=== PATIENT | male | born 1975 | race American Indian/Alaskan Native ===

== ENCOUNTER 2020-09-09 18:37 | Emergency (ER) | payer SELFPAY ==
[2020-09-10] MEDS ORDERED: ONDANSETRON 4 MG ODT TAB PO ONE (00:39)
--- NOTE | 2020-09-10 00:52 | Emergency Department Report ---
ED General Adult HPI - General Chief complaint: Medical Clearance Stated complaint: CANNOT EAT OR TASTE FOOD Time Seen by Provider: 09/10/20 00:38 Source: patient Mode of arrival: Ambulatory Limitations: No Limitations - History of Present Illness Initial comments: Patient is a 45-year-old -[place] male who presents for nausea vomiting with loss of taste and smell x1 week. Patient denies fevers or chills. States abdominal pain as 4/10 cramping intermittent. Symptoms are exacerbated by p.o. intake. Symptoms are relieved by nothing tried. Patient denies dizziness, lightheadedness, chest pain, shortness of breath, there is no back pain no dysuria frequency or urgency. Patient is a 20-year smoker, states occasional EtOH - Related Data Previous Rx's Medication Instructions Recorded Last Taken Type Dicyclomine [Bentyl] 10 mg PO QID #15 capsule 09/10/20 Unknown Rx Ondansetron [Zofran Odt] 4 mg PO Q8HR #12 tab.rapdis 09/10/20 Unknown Rx Allergies Allergy/AdvReac Type Severity Reaction Status Date / Time No Known Allergies Allergy Unverified 09/09/20 19:00 ED Review of Systems ROS: Stated complaint: CANNOT EAT OR TASTE FOOD Other details as noted in HPI Constitutional: malaise. denies: chills, fever Eyes: denies: eye pain, eye discharge, vision change ENT: congestion. denies: throat pain Respiratory: denies: cough, shortness of breath, wheezing Cardiovascular: denies: chest pain, palpitations Endocrine: no symptoms reported Gastrointestinal: abdominal pain, nausea, vomiting, diarrhea Genitourinary: denies: urgency, dysuria, frequency, hematuria Musculoskeletal: denies: back pain, joint swelling, arthralgia Skin: denies: rash, lesions Neurological: denies: headache, weakness, paresthesias Psychiatric: denies: anxiety, depression Hematological/Lymphatic: denies: easy bleeding, easy bruising ED Past Medical Hx - Past Medical History Previous Medical History?: No - Surgical History Past Surgical History?: Yes Additional Surgical History: Hernia repair. - Medications Home Medications: Home Medications Medication Instructions Recorded Confirmed Last Taken Type Dicyclomine [Bentyl] 10 mg PO QID #15 capsule 09/10/20 Unknown Rx Ondansetron [Zofran Odt] 4 mg PO Q8HR #12 tab.rapdis 09/10/20 Unknown Rx ED Physical Exam - General Limitations: No Limitations General appearance: alert, in no apparent distress - Head Head exam: Present: atraumatic, normocephalic - Eye Eye exam: Present: normal appearance, EOMI Pupils: Present: normal accommodation - ENT ENT exam: Present: mucous membranes moist - Neck Neck exam: Present: normal inspection, full ROM. Absent: tenderness - Respiratory Respiratory exam: Present: normal lung sounds bilaterally. Absent: respiratory distress, wheezes, stridor, chest wall tenderness - Cardiovascular Cardiovascular Exam: Present: regular rate, normal rhythm, normal heart sounds. Absent: systolic murmur, diastolic murmur, rubs, gallop - GI/Abdominal GI/Abdominal exam: Present: soft, normal bowel sounds. Absent: distended, tenderness, guarding, rebound, rigid, bruit, hernia - Rectal Rectal exam: Present: deferred - Extremities Exam Extremities exam: Present: normal inspection, full ROM, normal capillary refill. Absent: tenderness - Back Exam Back exam: Present: normal inspection, full ROM. Absent: tenderness, CVA tenderness (R), CVA tenderness (L) - Neurological Exam Neurological exam: Present: alert, oriented X3 - Psychiatric Psychiatric exam: Present: normal affect, normal mood - Skin Skin exam: Present: warm, dry, intact, normal color. Absent: rash ED Course Vital Signs 09/09/20 18:59 Temperature 100 F H Pulse Rate 53 L Respiratory 16 Rate Blood Pressure 100/60 [Right] O2 Sat by Pulse 100 Oximetry ED Medical Decision Making - Lab Data Result diagrams: 09/10/20 00:47 09/10/20 00:47 Labs 09/10/20 09/10/20 00:47 00:47 WBC 4.1 L RBC 5.56 H Hgb 18.1 H Hct 53.9 H MCV 97 H MCH 33 H MCHC 34 RDW 13.4 Plt Count 138 L [place] % (Auto) Lock Operator Sodium 136 L Potassium 4.4 Chloride 98.3 Carbon Dioxide 26 Anion Gap 16 BUN 24 H Creatinine 1.9 H Estimated GFR 47 BUN/Creatinine Ratio 13 Glucose 119 H Calcium 9.2 Total Bilirubin 0.30 AST 30 ALT 27 Alkaline Phosphatase 60 Total Protein 7.5 Albumin 4.6 Albumin/Globulin Ratio 1.6 Lipase 64 H Labs 09/10/20 09/10/20 09/10/20 00:47 00:47 02:10 WBC 4.1 L RBC 5.56 H Hgb 18.1 H Hct 53.9 H MCV 97 H MCH 33 H MCHC 34 RDW 13.4 Plt Count 138 L [place] % (Auto) Lock Operator Sodium 136 L Potassium 4.4 Chloride 98.3 Carbon Dioxide 26 Anion Gap 16 BUN 24 H Creatinine 1.9 H Estimated GFR 47 BUN/Creatinine Ratio 13 Glucose 119 H Calcium 9.2 Total Bilirubin 0.30 AST 30 ALT 27 Alkaline Phosphatase 60 Total Protein 7.5 Albumin 4.6 Albumin/Globulin Ratio 1.6 Lipase 64 H Urine Color [place] Urine Turbidity Clear Urine pH 5.0 Ur Specific [place] 1.032 H Urine Protein 100 mg/dl Urine Glucose (UA) Neg Urine Ketones Tr Urine Blood Neg Urine Nitrite Neg Urine Bilirubin Neg Urine Urobilinogen 2.0 Ur Leukocyte Esterase Neg Urine WBC (Auto) 5.0 Urine RBC (Auto) 4.0 U Epithel Cells (Auto) 2.0 Urine Bacteria (Auto) 1+ Hyaline Casts 1 Urine Mucus 1+ - Medical Decision Making Labs are noted normal, patient currently tolerating p.o. intake without nausea vomiting. Abdominal pain is resolved to 0/10. Patient completed p.o. challenge. Patient now advises symptoms started after EtOH intake and suspect leftover food. Patient advised to decrease EtOH intake , patient will be DC'd to home with prescription, patient will follow-up with PCP in 2 to 3 days. Patient will return to emergency should symptoms worsen or unable to tolerate p.o. intake. Patient is currently alert oriented x3 in no acute distress at this time. Critical care attestation.: If time is entered above; I have spent that time in minutes in the direct care of this critically ill patient, excluding procedure time. ED Disposition Clinical Impression: Nausea and vomiting Qualifiers: Vomiting type: unspecified Vomiting Intractability: non-intractable Qualified Code(s): R11.2 - Nausea with vomiting, unspecified Disposition: DC-01 TO HOME OR SELFCARE Is pt being admited?: No Does the pt Need Aspirin: No Condition: Stable Instructions: Nausea and Vomiting, Adult Prescriptions: Dicyclomine [Bentyl] 10 mg PO QID #15 capsule Ondansetron [Zofran Odt] 4 mg PO Q8HR #12 tab.rapdis Referrals: GISELL ROSARIO MD [Staff Physician] - 3-5 Days Forms: Work/School Release Form(ED) Time of Disposition: 02:27
[2020-09-10 01:20] LABS: Hematocrit 53.9 % (35.5-45.6); Hemoglobin 18.1 gm/dl (11.8-15.2); Mean Corpuscular HGB Conc 34 % (32-34); Mean Corpuscular Volume 97 fl (84-94); Platelet Count 138 K/mm3 (140-440); Red Blood Count 5.56 M/mm3 (3.65-5.03); Red Cell Distribution Width 13.4 % (13.2-15.2)
[2020-09-10 01:36] LABS: Albumin 4.6 g/dL (3.9-5); Calcium 9.2 mg/dL (8.4-10.2)
[2020-09-10] MEDS ORDERED: SODIUM CHLORIDE 0.9% 1000 ML 1,000 ML IV ONE (01:54)
[2020-09-10 02:24] LABS: Bacteria,Urine 1+ /HPF (Negative); Bilirubin,Urine NEG (Negative); Blood,Urine NEG (Negative); Color,Urine Amber (Yellow); Hyaline Casts,Urine 1 /LPF; Mucus,Urine 1+ /HPF
[2020-09-10 03:05] LABS: Basophils % (Manual) 0 % (0.0-1.8); Eosinophils % (Manual) 0 % (0.0-4.3); Total Cells Counted 100
[2020-09-10 03:06] LABS: Platelet Estimate Consistent w Auto
[2020-09-10 07:19] VITALS: BP 100/72
== END 2020-09-10 03:00 | disposition home or self-care (01) ==
LOC: ED 18:37
DX: R10.84 Generalized abdominal pain (principal); R11.2 Nausea with vomiting, unspecified
CPT/HCPCS: 36415; 80053; 81001; 83690; 85007; 85025; 99283; Q0162